=== PATIENT | female | born 1975 | race Caucasian/White ===

== ENCOUNTER → 2016-09-12 | Outpatient (CLI) | payer BC ==
[~2016-09-12] MED LIST: LEXAPRO 10MG10 MG PO; MULTIPLE VITAMI1 CAP PO; SYNTHROID0.05 MG PO
== END ==
LOC: MC.RAD 10:13
DX: Z12.31 Encounter for screening mammogram for malignant neoplasm of breast (principal)

== ENCOUNTER → 2017-10-09 | Outpatient (CLI) | payer OTHER | LOC: MC.RAD 12:53 | DX: Z12.31 Encounter for screening mammogram for malignant neoplasm of breast (principal) ==

== ENCOUNTER → 2018-10-29 | Outpatient (CLI) | payer BC | LOC: MC.RAD 08:30 | DX: Z12.31 Encounter for screening mammogram for malignant neoplasm of breast (principal) ==

== ENCOUNTER → 2019-11-25 | Outpatient (CLI) | payer BC | LOC: MC.RAD 11-11 10:15 | DX: Z12.31 Encounter for screening mammogram for malignant neoplasm of breast (principal) ==

== ENCOUNTER → 2021-02-06 | Outpatient (CLI) | payer BC | LOC: COL.RAD 08:27 | DX: M25.542 Pain in joints of left hand (principal) | CPT/HCPCS: J3301; Q9967 ==

== ENCOUNTER → 2021-04-03 | Outpatient (CLI) | payer BC | LOC: MC.RAD 01-23 09:15 | DX: Z12.31 Encounter for screening mammogram for malignant neoplasm of breast (principal) ==